=== PATIENT | female | born 1965 | race Caucasian/White ===

== ENCOUNTER 2016-11-16 09:58 | Day surgery (SDC) | payer BC ==
[~2016-11-16 09:58] MED LIST: Sodium Chloride 0.9% 1,000 ML IV SCH; Sodium Chloride 0.9% 10 ML Syringe FLUSH PRN
[2016-11-16] MEDS ORDERED: Propofol 200 MG/20 ML SDV ONE (12:00)
[2016-11-16 14:41] VITALS: BP 124/68
--- NOTE | 2016-11-16 17:54 | OR ---
DATE OF OPERATION: 11/16/2016 PREOPERATIVE DIAGNOSIS: Right upper quadrant pain. POSTOPERATIVE DIAGNOSES: 1. Large 5 cm hiatal hernia. 2. Otherwise normal upper endoscopy. COMPLICATIONS: None. DRAINS: None. SPECIMENS: None. ESTIMATED BLOOD LOSS: Zero. ANESTHESIA: General propofol anesthesia. INDICATION: Ms. Hester is a 51 year female with right upper quadrant pain that was investigated by ultrasound as well as HIDA scan, which revealed no significant findings of the gallbladder. I decided to perform upper endoscopy to rule out any ulcer disease, however, I discussed upper endoscopy to rule out peptic ulcer disease. The above-mentioned procedure was explained. The risks, benefits, and complications were explained. The patient understood and agreed and is brought to the operating room. DESCRIPTION OF PROCEDURE: The patient was brought to the operating room and placed in the left lateral decubitus position on the operating room table. Satisfactory general propofol anesthesia was administered. We began by placing the endoscope into the oral cavity through a mouth guard and subsequently by direct vision advancing the endoscope to the second portion of the duodenum. The duodenum was then thoroughly evaluated on withdrawal, which appeared satisfactory. The bulb of the duodenum appeared satisfactory. Next, the pylorus and the antrum were evaluated and they appeared satisfactory. Retroflexion was performed in the stomach, which revealed a hiatal hernia defect. The remainder of the stomach was within normal limits. Next, we measured out the hiatal hernia, which turned out to be approximately 5 cm. There was an irregular Z-line, however, no evidence of Recinos esophagus. Possibly, beginning of a Schatzki's ring was identified. The remainder of the esophagus was within normal limits. The stomach was decompressed and the endoscope was withdrawn. The patient tolerated the procedure well. There were no complications. Instrument count was correct. The patient was awoken in the OR and taken to the PACU for recovery. POLINA /[id number]
== END 2016-11-16 13:45 | disposition home or self-care (01) ==
LOC: LB.SDS 09:58
PROVIDERS: ATTEND Surgery
DX: K44.9 Diaphragmatic hernia without obstruction or gangrene (principal); Z79.899 Other long term (current) drug therapy
CPT/HCPCS: 43235; J2704; J7040; J7050

== ENCOUNTER 2018-12-07 09:24 | Emergency (ER) | payer BC ==
[2018-12-07] MEDS ORDERED: Ciprofloxacin 500 MG Tab ONE (09:25)
--- NOTE | 2018-12-07 09:33 | EDM.PDOC ---
ED HPI GENERAL MEDICAL PROBLEM - General Chief Complaint: Genitourinary Problem Stated Complaint: UTI Time Seen by Provider: 12/07/18 09:25 Source of Information: Reports: Patient History Limitations: Reports: No Limitations - History of Present Illness INITIAL COMMENTS - FREE TEXT/NARRATIVE: According to patient she claims she was fine until last evening. Pt claims she has been having increased frequency of urination with burning and feeling of incomplete emptying of urine since she woke up today morning. No fever or chills. No nausea or vomiting. No vaginal discharge. No back pain. She has had previous UTI and hence here to have it checked. Onset: Today Onset Date: 12/07/18 Onset Time: 06:00 Duration: Getting Worse Severity: Mild Associated Symptoms: Denies: Confusion, Chest Pain, Cough, Diaphoresis, Fever/ Chills, Headaches, Nausea/Vomiting, Rash, Seizure, Shortness of Breath, Syncope , Weakness - Related Data Allergies Allergy/AdvReac Type Severity Reaction Status Date / Time No Known Allergies Allergy Verified 11/15/16 17:28 Home Meds: Home Meds Levothyroxine Sodium 100 mcg PO DAILY 07/07/13 [History] Past Medical History Gastrointestinal History: Reports: Hemorrhoids Genitourinary History: Reports: Pyelonephritis FITTER TYPE BAR AND SEGMENT History: Reports: Musculoskeletal History: Reports: Back Pain, Chronic Endocrine/Metabolic History: Reports: Hypothyroidism Other Endocrine/Metabolic History: hypothyroidism - Infectious Disease History Infectious Disease History: Reports: Chicken Pox - Past Surgical History GI Surgical History: Reports: Hernia, Abdominal Social & Family History - Family History Family Medical History: Noncontributory - Caffeine Use Caffeine Use: Reports: Coffee ED ROS GENERAL - Review of Systems Review Of Systems: See Below Constitutional: Denies: Fever, Chills HEENT: Denies: Ear Pain, Rhinitis, Throat Pain Respiratory: Denies: Cough, Sputum GI/Abdominal: Denies: Abdominal Pain, Nausea, Vomiting : Reports: Dysuria, Frequency, Urgency. Denies: Discharge, Flank Pain, Hematuria, Incontinence Musculoskeletal: Denies: Back Pain, Joint Pain, Joint Swelling Skin: Denies: Bruising, Pruritis, Rash ED EXAM, GENERAL - Physical Exam Exam: See Below Exam Limited By: No Limitations General Appearance: Alert Eye Exam: Bilateral Eye: EOMI, PERRL Ears: Normal External Exam, Normal Canal, Hearing Grossly Normal, Normal TMs Ear Exam: Bilateral Ear: Auricle Normal, Canal Normal, TM normal Nose: Normal Inspection, Normal Mucosa, No Blood Throat/Mouth: Normal Inspection, Normal Lips, Normal Teeth, Normal Gums, Normal Oropharynx, Normal Voice, No Airway Compromise Head: Atraumatic, Normocephalic Neck: Normal Inspection, Supple, Non-Tender, Full Range of Motion Respiratory/Chest: No Respiratory Distress, Lungs Clear, Normal Breath Sounds, No Accessory Muscle Use, Chest Non-Tender Cardiovascular: Normal Peripheral Pulses, Regular Rate, Rhythm, No Edema, No Gallop, No JVD, No Murmur, No Rub GI/Abdominal: Normal Bowel Sounds, Soft, Non-Tender, No Organomegaly, No Distention, No Abnormal Bruit, No Mass Back Exam: Normal Inspection, Full Range of Motion. No: CVA Tenderness (R), CVA Tenderness (L) Course - Vital Signs Text/Narrative:: UA shows large leucos-estrase, and positive nitrites. Also Micro shows 75-100 WBC. Pt reassured that she has lower urinary tract infection. Started on cipro 500mg twice daily for 1 wk. Advised to drink plenty of fluids. 1-2 glass of cranberry juice daily and 2 liters of fluids. Symptoms should gradually improve. Urine culture sent will followup with results. return to ER if she develops fever, chills, nausea, vomiting or severe back pain. - Orders/Labs/Meds Orders: Active Orders 24 hr Category Date Time Status CULTURE URINE [RM] Stat Lab 12/07/18 09:49 Ordered Labs: Laboratory Tests 12/07/18 Range/Units 09:29 Urine Color Other Urine Appearance Cloudy (CLEAR) Urine pH 6.5 (5.0-8.0) Ur Specific [place] 1.010 (1.003-1.030) Urine Protein 100 H (NEGATIVE) mg/dL Urine Glucose (UA) Negative (NEGATIVE) mg/dL Urine Ketones Negative (NEGATIVE) mg/dL Urine Occult Blood Large H (NEGATIVE) Urine Nitrite Positive H (NEGATIVE) Urine Bilirubin Negative (NEGATIVE) Urine Urobilinogen 0.2 (0.2-1.0) E.U./dL Ur Leukocyte Esterase Moderate H (NEGATIVE) Urine RBC 5-10 H /HPF Urine WBC 75-100 H /HPF Urine WBC Clumps Moderate /HPF Ur Squamous Epith Cells Moderate /HPF Urine Bacteria Moderate H /HPF Departure - Departure Time of Disposition: 09:55 Disposition: Home, Self-Care 01 Condition: Fair Clinical Impression: UTI, Urinary tract infectious disease - Discharge Information *PRESCRIPTION DRUG MONITORING PROGRAM REVIEWED*: Not Applicable *COPY OF PRESCRIPTION DRUG MONITORING REPORT IN PATIENT ESVIN: Not Applicable Instructions: Urinary Tract Infection, Adult, [id number] Forms: ED Department Discharge Additional Instructions: UA shows large leucos-estrase, and positive nitrites. Also Micro shows 75-100 WBC. Pt reassured that she has lower urinary tract infection. Started on cipro 500mg twice daily for 1 wk. Advised to drink plenty of fluids. 1-2 glass of cranberry juice daily and 2 liters of fluids. Symptoms should gradually improve. Urine culture sent will followup with results. return to ER if she develops fever, chills, nausea, vomiting or severe back pain. - Problem List & Annotations (1) UTI, Urinary tract infectious disease SNOMED Code(s): 08818765 Code(s): N39.0 - URINARY TRACT INFECTION, SITE NOT SPECIFIED Status: Acute - Problem List Review Problem List Initiated/Reviewed/Updated: Yes - My Orders Last 24 Hours: My Active Orders 12/07/18 09:49 CULTURE URINE [RM] Stat - Assessment/Plan Last 24 Hours: My Active Orders 12/07/18 09:49 CULTURE URINE [RM] Stat Assessment:: Acute UTI Plan: UA shows large leucos-estrase, and positive nitrites. Also Micro shows 75-100 WBC. Pt reassured that she has lower urinary tract infection. Started on cipro 500mg twice daily for 1 wk. Advised to drink plenty of fluids. 1-2 glass of cranberry juice daily and 2 liters of fluids. Symptoms should gradually improve. Urine culture sent will followup with results. return to ER if she develops fever, chills, nausea, vomiting or severe back pain.
[2018-12-07 14:00] VITALS: BP 125/82
== END 2018-12-07 09:55 | disposition home or self-care (01) ==
LOC: LB.ED 09:24
DX: N39.0 Urinary tract infection, site not specified (principal); E03.9 Hypothyroidism, unspecified; Z79.899 Other long term (current) drug therapy
CPT/HCPCS: 81001; 87086; 87088; 87186; 99283; A9270-GY